=== PATIENT | female | born 1985 | race Caucasian/White ===

== ENCOUNTER 2022-12-28 10:07 | Emergency (ER) | payer OTHER ==
[~2022-12-28] VITALS: Ht 154.9 cm; Wt 68.0 kg
[2022-12-28 10:15] VITALS: BP 144/80; PULSE 75; RESP 77; TEMP 98.3; O2SAT 100
[2022-12-28] MEDS ORDERED: KETOROLAC 30 MG/ML VIAL IM ONE (12:15)
[2022-12-28] MEDS ORDERED: NAPR-1704 PO (12:17)
[2022-12-28] MEDS ORDERED: CAPS1ADH5 TP (12:18)
[2022-12-28 12:27] VITALS: BP 115/67; PULSE 74; RESP 17; O2SAT 98
== END 2022-12-28 12:27 | disposition home or self-care (01) ==
LOC: MED 10:07
DX: S46.812A Strain of other muscles, fascia and tendons at shoulder and upper arm level, left arm, initial encounter (principal); V49.88XA Car occupant (driver) (passenger) injured in other specified transport accidents, initial encounter; Y93.89 Activity, other specified; Y92.89 Other specified places as the place of occurrence of the external cause; Y99.8 Other external cause status
CPT/HCPCS: 96372; 99283; J1885